=== PATIENT | female | born 2005 | race Caucasian/White ===

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

== ENCOUNTER 2024-03-22 19:54 | Emergency (ER) | payer OTHER ==
[2024-03-22 20:05] VITALS: BP 106/70; PULSE 87; RESP 16; TEMP 98.8; BMI 21.9
[2024-03-22 20:31] LABS: BASO % 0.5 % (0-2.0); EOS % 1.8 % (0-4.5); HEMATOCRIT 35.9 % (32.4-45.2); HEMOGLOBIN 11.9 GM/dL (10.7-15.3); LYMPH % 19.2 % (8-40); MCHC 33.2 g/dl (32.0-36.0); MEAN CELL VOLUME 81.2 fl (80-96); MEAN PLT VOLUME 7.8 fl (7.5-11.1); MONO % 11.7 % (3.8-10.2); NEUT % 66.8 % (42.8-82.8); PLATELET COUNT 221 10^3/uL (134-434); RBC 4.41 M/mm3 (3.60-5.2); RDW 14.8 % (11.6-15.6); WHITE BLOOD COUNT 6.7 K/mm3 (4.0-10.0)
[2024-03-22] MEDS: SODIUM CHLORIDE 0.9% 500 ML INFUS.BAG IV ONE (20:31)
[2024-03-22 21:07] LABS: POTASSIUM 3.6 mmol/L (3.5-5.1)
[2024-03-22 21:09] LABS: BLOOD UREA NITROGEN 12.1 mg/dL (7-18); CALCIUM 9.7 mg/dL (8.5-10.1)
[2024-03-22 21:13] LABS: CREATININE 0.6 mg/dL (0.55-1.3)
[2024-03-22] MEDS ORDERED: ACETAMINOPHEN 325 MG TABLET (FP) ONE (21:13)
[2024-03-22] MEDS: PYRIDOXINE HCL (B-6) 50 MG TABLET (FP) PO ONE (21:19)
[2024-03-22] MEDS: ACETAMINOPHEN 500 MG TABLET (FP) PO ONE (21:19)
[2024-03-22] MEDS: PYRIDOXINE HCL (B-6) 100 MG TABLET PO ONE (21:19)
[2024-03-22 21:37] LABS: PH,URINE 5.5 (5.0-8.0); URINE APPEARANCE CLEAR; URINE BILIRUBIN NEGATIVE (NEGATIVE); URINE COLOR DK YELLOW; URINE GLUCOSE (UA) NEGATIVE (NEGATIVE); URINE KETONE 1+ (NEGATIVE); URINE LEUK ESTERASE NEGATIVE (NEGATIVE); URINE NITRITE NEGATIVE (NEGATIVE); URINE PROTEIN NEGATIVE (NEGATIVE)
== END 2024-03-22 22:45 | disposition home or self-care (01) ==
LOC: JER 19:54
DX: O21.9 Vomiting of pregnancy, unspecified (principal); O99.891 Other specified diseases and conditions complicating pregnancy; R51.9 Headache, unspecified; R09.81 Nasal congestion; O26.891 Other specified pregnancy related conditions, first trimester; R10.13 Epigastric pain; Z20.822 Contact with and (suspected) exposure to COVID-19
CPT/HCPCS: 0241U-QW; 36415; 76705-TC; 76815; 80048; 81003; 84702; 85025; 86850; 86900; 86901; 99284-25